=== PATIENT | male | born 2000 | race Caucasian/White ===

== ENCOUNTER → 2020-05-04 | Outpatient (CLI) | payer OTHER, SELFPAY | END | disposition home or self-care (01) | PROVIDERS: Visit Provider Family Medicine | DX: Z11.59 Encounter for screening for other viral diseases (principal) | CPT/HCPCS: 87635; U0003 ==

== ENCOUNTER 2021-03-03 05:40 | Emergency (ER) | payer OTHER, SELFPAY ==
[2021-03-03 05:41] VITALS: BP 142/83; PULSE 70; RESP 16; TEMP 36.2; O2SAT 99; BMI 34.7
--- NOTE | 2021-03-03 05:46 | EKG12_ITS ---
Test Reason : CP Blood Pressure : / mmHG Vent. Rate : 057 BPM Atrial Rate : 057 BPM P-R Int : 178 ms QRS Dur : 112 ms QT Int : 414 ms P-R-T Axes : 034 070 014 degrees QTc Int : 402 ms Sinus bradycardia with sinus arrhythmia Otherwise normal ECG Confirmed by JIN ALARCON, EMILY ([id number]), digital editor LOW BARRAGAN ([id number]) on 03/05/2021 9:06:49 AM Referred By: SHAKILA Confirmed By:EMILY ABDI MD
--- NOTE | 2021-03-03 05:46 | RAD_ITS ---
STUDY: X-RAY CHEST REASON FOR EXAM: Male, 20 years old. chest pain TECHNIQUE: Single AP portable view of the chest. COMPARISON: None. FINDINGS: The lungs are clear and expanded. There is no demonstrated pleural abnormality. Normal size heart. Normal mediastinum and veronika. Normal visualized pulmonary arteries. Normal visualized aortic arch and descending thoracic aorta. Normal visualized thoracic spine. Normal visualized ribs, clavicles, and shoulders. There is no demonstrated abnormality of the visualized soft tissue structures of the upper abdomen. RAD/Chest 1 View (Portable) IMPRESSION: No evidence of acute cardiopulmonary process. Electronically Signed: Ashwin Smith DO at 6:12 EDT , Service support ,
--- NOTE | 2021-03-03 05:54 | EDS_ITS ---
HPI History of Present Illness Chief Complaint: Chest Pain Narrative Narrative: 23-year-old male presenting with right-sided chest pain. This woke him from sleep at 2 AM. It has been intermittent since then. Patient denies fever, chills. He denies change in taste or smell, shortness of breath. Patient has no known trauma. He has no cardiac history. He has no pulmonary history. Patient does state that he has history of acid reflux periodically. He does not take any medication for this. He admits that he ate pizza last night prior to the onset of the symptoms. [facility] Medical History ADD (attention deficit disorder) Home Medications NK 03/03/21 [History Last Taken Unknown] Allergy/AdvReac Type Severity Reaction Status Date / Time No Known Allergies Allergy Verified 03/03/21 05:41 Social History Smoking Status: Never smoker ROS ROS ED Constitutional Constitutional ED: Denies chills, fever(s) or sweats Eyes Eyes: Denies blurry vision or change in vision ENT ENT ED: Denies ear pain, rhinorrhea or sore throat Cardiovascular Cardiovascular: Reports chest pain; Denies palpitations or racing heartbeat Respiratory/Chest Respiratory/Chest: Denies cough, dyspnea or sputum Gastrointestinal Gastrointestinal: Denies abdominal pain, constipation, diarrhea or vomiting Genitourinary Genitourinary ED: Denies dysuria, hematuria or urinary frequency Musculoskeletal Musculoskeletal: Denies arthralgias, myalgias or neck pain Integumentary Denies abscess, Abrasions or rash Neurologic Neurologic: Denies headache(s), paresthesias or weakness Psychiatric Psychiatric: Denies anxiety, depression, suicidal ideation or suicidal thoughts Endocrine Endocrinology: Denies polydipsia or polyuria EXAM Physical Exam Const Vital Signs: 03/03/21 05:41 03/03/21 05:46 Temperature 97.1 F L Temperature Source Temporal Pulse Rate 70 Respiratory Rate 16 Respiratory Effort Normal Blood Pressure 142/83 H Blood Pressure Mean 102 Pulse Ox 99 Oxygen Delivery Method Room Air Positive well developed General Appearance ED: well developed and NAD; Negative for pallor HEENT Reports normocephalic, head/scalp atraumatic and moist mucous membranes normocephalic and atraumatic Eyes PERRL and EOMs intact bilaterally Chest Wall inspection of chest normal and palpation of chest normal Resp normal respiratory effort and clear to auscultation bilaterally Auscultation: Negative for rales, rhonchi or wheezes Cardio regular rhythm Rate: bradycardia GI normal to inspection, nondistended, normoactive bowel sounds and non-distended Auscultation: normoactive bowel sounds Palpation: soft Narrative: Deferred Back/Spine no CVA tenderness General Back: Negative for CVA tenderness Cervical Spine: Negative for cervical spine tenderness Extremity normal to inspection General Extremety ED: Yes edema and tenderness General Extremity: edema Neuro oriented x3 and CN's II-XII intact bilaterally Sensorium / Orientation: alert Motor Exam: strength 5/5 throughout Psych mental status grossly normal Attitude: No agitated Skin no rashes or lesions noted and no wounds General Skin Exam: Negative for jaundice or pallor Heart Score History: Slightly/Non-Suspicious ECG: Normal Age: </= 45 years Risk Factors: No Risk Factors Score: 0 MDM MDM MDM Narrative Medical decision making narrative: Patient presenting with retrosternal chest pain which woke him up from sleep at about 2 AM. He tried to sleep it off but states it was intermittently bothering him. Patient does admit to eating pizza last night prior to going to bed. Patient also admits to history of acid reflux periodically. Patient had EKG performed on arrival which shows sinus bradycardia at 57 bpm without signs of ischemic change as interpreted by myself. Chest x-ray shows no acute cardiopulmonary process as interpreted by myself and the radiologist does agree. Lab work-up is unremarkable. Patient is PERC negative. Heart score is 0. patient given GI cocktail with improvement of his symptoms. I do not believe he needs a delta troponin or delta EKG. Symptoms likely due to acid reflux. Patient counseled on foods she should avoid. Patient stable discharge at this time Impression: 1. Chest pain noncardiac 2. GERD Lab Data Labs: Laboratory Results - last 24 hr 03/03/21 03/03/21 05:55 05:55 WBC 6.4 RBC 5.12 Hgb 14.9 Hct 45.3 MCV 88.5 MCH 29.1 MCHC 32.9 RDW Std Deviation 38.4 RDW Coeff of Jennifer 11.9 Plt Count 209 MPV 10.9 Immature Gran % (Auto) 0.300 Neut % (Auto) 33.5 L Lymph % (Auto) 45.4 H [place] % (Auto) 16.5 H Eos % (Auto) 3.8 Baso % (Auto) 0.5 Absolute Neuts (auto) 2.1 Absolute Lymphs (auto) 2.88 Nucleated RBC % 0 Sodium 142 Potassium 3.5 Chloride 107 Carbon Dioxide 30.0 Anion Gap 5 BUN 8 Creatinine 1.03 Estim Creat Clear Calc 105.18 Est GFR (MDRD) Af Amer 115 Est GFR (MDRD) Non-Af 95 BUN/Creatinine Ratio 7.8 L Glucose 114 H Calcium 8.6 Troponin I < 0.015 Radiography Diagnostic Testing: Radiology Impression Chest X-Ray 03/03/21 05:46 IMPRESSION: No evidence of acute cardiopulmonary process. Electronically Signed: Ashwin Smith DO at 6:12 EDT , Service support , Discharge Plan Triage Chief Complaint: Chest Pain ED Provider: Jared Caballero Dx/Rx/DC Orders Instructions: ED Chest Pain, Noncardiac, ED GERD (Adult) Prescriptions: No Action NK RF: 0 Primary Care Provider: Guzman Dye Referrals: Guzman Dye MD [Primary Care Provider] - Disposition Disposition: Home, self care
[2021-03-03 05:59] LABS: Absolute Lymphocyte Count 2.88 X10^3/uL (0.83-4.51); Absolute Neutrophil Count 2.1 X10^3/uL (2.0-7.7); Basophil# 0.03 X10^3/uL; Basophil% 0.5 % (0-1); Eosinophil# 0.24 X10^3/uL; Eosinophils% 3.8 % (0-5); Hematocrit 45.3 % (40-54); Hemoglobin 14.9 g/dL (13.0-16.5); Lymphocyte # 2.88 X10^3/ul (0.83-4.51); Lymphocyte % 45.4 % (19-41); Mean Corp Hgb Conc 32.9 g/dL (32-36); Mean Corpuscular Hgb 29.1 pg (27.0-32.0); Mean Corpuscular Volume 88.5 fL (80-94); Mean Platelet Vol. 10.9 fl (6.2-12.0); Monocyte# 1.05 X10^3/uL; Monocyte% 16.5 % (0-10); NRBC Flagged by Analyzer 0 % (0-5); Neutrophil # 2.13 X10^3/uL (2.7-7.7); Neutrophil % 33.5 % (47-70); Platelet Count 209 K/mm3 (150-450); RBC Distribution Width CV 11.9 % (11.6-14.6); RBC Distribution Width SD 38.4 fl (35.1-43.9); Red Blood Count 5.12 M/mm3 (4.6-6.2); White Blood Count 6.4 K/mm3 (4.4-11.0)
[2021-03-03] MEDS: Mag Hydrox/Al Hydrox/Simeth 30 ML UDC PO (06:11)
[2021-03-03 06:16] LABS: Anion Gap 5 (5-15); BUN 8 mg/dL (7-18); BUN/Creat Ratio 7.8 RATIO (10-20); Calcium,Total 8.6 mg/dL (8.5-10.1); Chloride 107 mmol/L (98-107); Creatinine, Serum 1.03 mg/dL (0.70-1.30); EST Glomerular Filtration Rate 95 mL/min (>60); Est Glom Filt Rate - Afr Amer 115 mL/min (>60); Estimated Creatinine Clearance 105.18 ml/min; Glucose 114 mg/dL (74-106); Potassium 3.5 mmol/L (3.5-5.1); Sodium Level 142 mmol/L (136-145)
[2021-03-03 06:38] VITALS: BP 98/87; PULSE 60; RESP 16; O2SAT 96
== END 2021-03-03 06:44 | disposition home or self-care (01) ==
LOC: ED 06:34
PROVIDERS: Emergency Provider Student in an Organized Health Care Education/Training Program; PCP Family Medicine
DX: K21.9 Gastro-esophageal reflux disease without esophagitis (principal); R07.89 Other chest pain
CPT/HCPCS: 71045; 80048; 84484; 85025; 93005; 99285; A4216